=== PATIENT | female | born 1930 | race African-American/Black ===

== ENCOUNTER 2016-12-26 19:32 | Emergency (ER) | payer MEDICARE, OTHER ==
[~2016-12-26] VITALS: Ht 172.7 cm; Wt 68.0 kg
[2016-12-26 19:42] VITALS: Ht 172.7 cm; Wt 68.0 kg
[2016-12-26] MEDS ORDERED: METHYLPREDNISOLONE 125 MG INJ IV STA (19:59)
[2016-12-26] MEDS ORDERED: IPRATROPIUM (NEB) 0.5 MG/2.5 ML AMP INH STA (19:59)
[2016-12-26] MEDS ORDERED: ALBUTEROL 0.083% (NEB) 2.5 MG/3 ML AMP INH STA (19:59)
[2016-12-26 20:39] LABS: MODE ROOM AIR; MetHgb Venous 0.3 %; Sample Type Blood venous; Venous COHb 0 %; Venous Fraction OxyHgb 48.9 %; Venous Total Hemglobin 10.5 g/dl
--- NOTE | 2016-12-26 20:40 | RADRPT ---
PROCEDURE: XR Chest. CLINICAL INDICATION: Shortness of breath. TECHNIQUE: Portable AP upright view of the chest was obtained. COMPARISON: None. FINDINGS: The cardiomediastinal silhouette is enlarged. Mild left greater than right basilar subsegmental ate lectasis is present without pulmonary infiltrate, slight elevation of the left hemidiaphragm is note d. There is no evidence for pleural effusion, pneumothorax or pulmonary vascular congestion. Demin eralization is noted. There is no evidence of acute osseous abnormality. Old bilateral mid lateral fractures are noted. Calcification of the aorta is visualized. RPTAT:HJJR IMPRESSION: 1. Cardiac silhouette enlargement with mild bibasilar subsegmental atelectasis but no evidence of p neumonia or congestive heart failure. 2. Demineralization with old bilateral mid rib fractures. 3. Aortic atherosclerosis is present. Physician Elana Date Time Electronically viewed and signed by Physician Elana on 12/26/2016 20:39 JR/
[2016-12-26 20:46] LABS: ADD SCAN DIFF NO
[2016-12-26 20:48] LABS: HEMATOCRIT 29.7 % (37.0-47.0); HEMOGLOBIN 9.6 g/dl (12.0-16.0); MEAN CORPUSCULAR HEMOGLOBIN 31.3 pg (29.0-33.0); MEAN CORPUSCULAR HGB CONC 32.3 g/dl (32.0-37.0); MEAN CORPUSCULAR VOLUME 96.7 fl (82.0-101.0); MEAN PLATELET VOLUME 10.6 fl (7.4-10.4); PLATELET COUNT 221 10^3/UL (140-415); RED BLOOD COUNT 3.07 10^6/ul (4.20-5.40); RED CELL DISTRIBUTION WIDTH 14.6 % (11.5-14.5); WHITE BLOOD COUNT 4.9 10^3/ul (4.8-10.8)
[2016-12-26 21:00] LABS: ALBUMIN 3.7 g/dl (3.3-4.9)
[2016-12-26 21:02] LABS: INR 1.03; PARTIAL THROMBOPLASTIN TIME 36.5 Sec (25.0-35.0); PROTIME 13.5 Sec (12.2-14.2); PT RATIO 1.1
[2016-12-26 21:03] LABS: ALBUMIN/GLOBULIN RATIO 0.94; BILIRUBIN,INDIRECT 0.2 mg/dl (0-1.1); BILIRUBIN,TOTAL 0.2 mg/dl (0.2-1.3); CREATININE 2.11 mg/dl (0.44-1.00); TOTAL PROTEIN 7.6 g/dl (6.1-8.1)
[2016-12-26 21:04] LABS: CALCIUM 9.4 mg/dl (8.4-10.2)
[2016-12-26 21:15] LABS: TROPONIN-I 0.019 ng/ml (0.00-0.12)
[2016-12-26 21:29] VITALS: BP 149/59; PULSE 76; RESP 15
[2016-12-26] MEDS ORDERED: ALBU8.5H3 INH (21:37)
[2016-12-26] MEDS ORDERED: AZIT250T94 PO (21:37)
[2016-12-26] MEDS ORDERED: PRED20TA PO (21:37)
--- NOTE | 2016-12-26 22:04 | ERD ---
ER Documentation Chief Complaint Date/Time DATE: 12/26/16 TIME: 21:58 Chief Complaint SOB x 40 min, +wheezing. improved w/ HHN per EMS HPI 86-year-old female with a history of Alzheimer's dementia, COPD, and hypertension presenting with shortness of breath from home. Most of the history is from her stepdaughter over the phone as the patient is unable to give a thorough history. The patient states that she has been having some shortness of breath today. She has also had some runny nose and cough but she is unsure for how long. No fevers or chills. No nausea, vomiting, chest pain, abdominal pain. She is not sure if she uses an inhaler. ROS Limited review of systems secondary to patient's dementia Medications Home Meds Active Scripts Albuterol Sulfate* (Proair HFA*) 8.5 Gm Hfa.aer.ad, 2 PUFF INH Q4H Y for WHEEZING AND SOB, #1 INHALER Prov:VELVET STOCK MD 12/26/16 Prednisone* (Prednisone*) 20 Mg Tab, 60 MG PO DAILY for 4 Days, TAB start 12/27/16 Prov:VELVET STOCK MD 12/26/16 Azithromycin* (Zithromax*) 250 Mg Tablet, 250 MG PO .ZPACK DIRECTED, #6 TAB TAKE 500 MG (2 TABS) THE FIRST DAY THEN 250 MG (1 TAB) DAYS 2-5 Prov:VELVET STOCK MD 12/26/16 Allergies Allergies: Coded Allergies: Unknown: Unable to obtain (Unverified , 12/26/16) PMhx/Soc History of Surgery: Yes (R hip replacement.) Anesthesia Reaction: No Hx Neurological Disorder: Yes (Alzheimer's) Hx Respiratory Disorders: Yes (COPD) Hx Cardiac Disorders: No Hx Psychiatric Problems: No Hx Miscellaneous Medical Probl: Yes (HTN) Hx Alcohol Use: No Hx Substance Use: No Hx Tobacco Use: No Smoking Status: Never smoker FmHx Family History: other (Unable to obtain) Physical Exam Vitals Vital Signs Date Time Temp Pulse Resp B/P Pulse Ox O2 Delivery O2 Flow Rate FiO2 12/26/16 21:29 76 15 149/59 99 Room Air 12/26/16 20:30 64 16 100 21 12/26/16 19:42 97.7 61 20 126/66 100 Physical Exam Const: Well-appearing, no distress, speaking in full sentences Head: Atraumatic Eyes: Normal Conjunctiva ENT: Normal External Ears, Nose and Mouth. Neck: Full range of motion..~ No meningismus. Resp: Diffuse expiratory wheezing, no rales or rhonchi, poor air movement Cardio: Regular rate and rhythm, no murmurs Abd: Soft, non tender, non distended. Normal bowel sounds Skin: No petechiae or rashes Back: No midline or flank tenderness Ext: No cyanosis, or edema Neur: Awake and alert Psych: Normal Mood and Affect Result Diagram: 12/26/16201912/26/162019 Results 24 hrs Laboratory Tests Test 12/26/16 19:59 12/26/16 20:20 Blood Gas Specimen Source Blood venous Arterial Blood Date Drawn 12/26/2016 8:28:12 PM Arterial Blood Gas Puncture Site VENOUS LINE Fran Test N/A Venous Blood pH 7.303 Venous Blood pCO2 (Temp Corrected) 51.3mmHG Venous Blood pO2 (Temp Corrected) 27.0mmHG Venous Blood HCO3 24.8mmol/L Venous Blood Oxygen Saturation 49.0mmHG Venous Blood Base Excess -1.8mmol/L Venous Blood Total Hemoglobin 10.5g/dl Venous Blood Oxyhemoglobin 48.9% Venous Blood Methemoglobin 0.3% Carboxyhemoglobin 0% Blood Gas Temperature 37.0C Blood Gas Modality ROOM AIR FiO2 21.0% Blood Gas Notified Whom AA Blood Gas Notified Time 12/26/2016 8:38:23 PM White Blood Count 4.910^3/ul Red Blood Count 3.0710^6/ul Hemoglobin 9.6g/dl Hematocrit 29.7% Mean Corpuscular Volume 96.7fl Mean Corpuscular Hemoglobin 31.3pg Mean Corpuscular Hemoglobin Concent 32.3g/dl Red Cell Distribution Width 14.6% Platelet Count 26796^3/UL Mean Platelet Volume 10.6fl Prothrombin Time 13.5Sec Prothrombin Time Ratio 1.1 INR International Normalized Ratio 1.03 Activated Partial Thromboplast Time 36.5Sec Sodium Level 134mmol/L Potassium Level 5.0mmol/L Chloride Level 100mmol/L Carbon Dioxide Level 28mmol/L Anion Gap 11 Blood Urea Nitrogen 57mg/dl Creatinine 2.11mg/dl Glucose Level 107mg/dl Calcium Level 9.4mg/dl Total Bilirubin 0.2mg/dl Direct Bilirubin 0.00mg/dl Indirect Bilirubin 0.2mg/dl Aspartate Amino Transf (AST/SGOT) 29IU/L Alanine Aminotransferase (ALT/SGPT) 27IU/L Alkaline Phosphatase 105IU/L Troponin I 0.019ng/ml Total Protein 7.6g/dl Albumin 3.7g/dl Globulin 3.90g/dl Albumin/Globulin Ratio 0.94 Current Medications Medications (Trade) Dose Ordered Sig/Huang Route PRN Reason Start Time Stop Time Status Last Admin Dose Admin Albuterol (Proventil 0.083% (Neb)) 5 mg ONCE STAT INH 12/26/16 19:59 12/26/16 20:02 DC 12/26/16 20:28 Ipratropium [place] (Atrovent 0.02% (Neb)) 0.5 mg ONCE STAT INH 12/26/16 19:59 12/26/16 20:02 DC 12/26/16 20:28 Methylprednisolone Sodium Succinate (Solu-Medrol) 125 mg ONCE STAT IV 12/26/16 19:59 12/26/16 20:02 DC 12/26/16 20:22 Procedures/MDM EKG: Rate/Rhythm: Normal Sinus Rhythm QRS, ST, T-waves: No changes consistent w/ acute ischemia Impression: No evidence of ischemia or arrhythmia Chest x-ray: IMPRESSION: 1. Cardiac silhouette enlargement with mild bibasilar subsegmental atelectasis but no evidence of pneumonia or congestive heart failure. 2. Demineralization with old bilateral mid rib fractures. 3. Aortic atherosclerosis is present. Physician Elana Date Time Electronically viewed and signed by Physician Elana on 12/26/2016 20:39 Labs reviewed and show: Elevated BUN and creatinine, likely chronic kidney disease versus acute renal failure. Anemia noted. Shortness of breath most consistent with COPD exacerbation. Considered URI, pneumonia, allergic reaction, PE, ACS, pericardial effusion, but less likely based on history and physical. Albuterol and atrovent nebs, steroids given. Patients symptoms have stabilized and pt hemodynamically stable with good saturations. Labs are notable for elevated BUN and creatinine, likely secondary to chronic kidney disease. She also has anemia, but I do not think the etiology of her shortness of breath today. There is no evidence of acute bleeding on exam. This can be worked up as an outpatient. patient is appropriate for outpatient management and follow up with PCP in 1-2 days. Prescription for steroids, azithromycin, and albuterol given. return precautions discussed with daughter. Departure Diagnosis: Primary Impression: COPD exacerbation Additional Impressions: Anemia Anemia type: other cause Other causes of anemia: other cause, not classified Qualified Code: D64.89 - Anemia due to other cause, not classified Kidney disease Condition: Stable Patient Instructions: Copd Flare Additional Instructions: Return to the ER for any worsening symptoms. Follow-up with your doctor in 1-2 days. VELVET STOCK MD Dec 26, 2016 22:04
[2016-12-26 23:50] LABS: EOSINOPHILS # 0.9 10^3/ul (0.0-0.5); LYMPHOCYTES # 1.1 10^3/ul (0.8-2.9); MONOCYTE # 0.3 10^3/ul (0.3-0.9); NEUTROPHIL # 2.5 10^3/ul (1.6-7.5)
== END 2016-12-26 22:31 | disposition home or self-care (01) ==
LOC: E/R 19:32
DX: J44.1 Chronic obstructive pulmonary disease with (acute) exacerbation (principal); D64.89 Other specified anemias; R40.2142 Coma scale, eyes open, spontaneous, at arrival to emergency department; R40.2362 Coma scale, best motor response, obeys commands, at arrival to emergency department; R40.2252 Coma scale, best verbal response, oriented, at arrival to emergency department; I10 Essential (primary) hypertension; G30.9 Alzheimer's disease, unspecified; N28.9 Disorder of kidney and ureter, unspecified; Z96.641 Presence of right artificial hip joint
CPT/HCPCS: 36415; 71010; 80053; 82803; 84484; 85025; 85610; 85730; 93005; 94664; 96374; 99285; J2930